=== PATIENT | male | born 1960 | race Caucasian/White ===

== ENCOUNTER 2016-12-26 18:49 | Emergency (ER) | payer OTHER ==
[~2016-12-26] VITALS: Ht 177.8 cm; Wt 60.8 kg
[2016-12-26 19:31] LABS: EOSINOPHIL (%) 0.2 % (0-5); HEMATOCRIT 42.5 % (36.0-46.0); IMMATURE GRANULOCYTE (%) 0.7 % (0.0-0.7); INSTRUMENT ABS NEUTROPHIL CT 2.9 K/uL; LYMPHOCYTE COUNT 0.9 K/uL (1.0-2.8); MCH 31.6 PG (29.0-34.0); MCHC 36.2 G/DL (30.0-36.0); MCV 87.3 FL (83-99); MEAN PLAT.VOLUME 11.4 uM^3 (9.5-12.4); MONOCYTE (%) 12.5 % (3-12); MONOCYTE COUNT 0.6 K/uL (0-0.8); NEUTROPHIL (%) 66.4 % (45-76); NEUTROPHIL COUNT 2.9 K/uL (1.8-6.4); PLATELET COUNT 89 K/uL (156-360); RBC DIS.WIDTH-CV 12.2 % (11.8-14.6); RBC DIS.WIDTH-SD 39.6 % (39-53); RED BLOOD COUNT 4.87 M/uL (3.80-5.20); WHITE BLOOD COUNT 4.4 K/uL (4.1-10.2)
[2016-12-26 19:43] LABS: CHLORIDE 85 mEq/L (99-109); POTASSIUM 3.1 mEq/L (3.7-5.4); SODIUM 131 mEq/L (136-147)
[2016-12-26 19:46] LABS: GLUCOSE 102 mg/dL (70-99)
[2016-12-26 19:47] LABS: ANION GAP 14 MEQ/L (2-14)
[2016-12-26 19:48] LABS: TOTAL BILIRUBIN 1.7 mg/dL (0.0-1.0)
[2016-12-26 19:49] LABS: ALKALINE PHOSPHATASE 56 IU/L (3-129); GFR ESTIMATE (CALCULATED) > 59 mL/min/
[2016-12-26 19:50] LABS: UREA NITROGEN (BUN) 6 mg/dL (9-23)
[2016-12-26] MEDS ORDERED: POTASSIUM-9999 MG PO (20:30)
[2016-12-26] MEDS ORDERED: K-DUR20 MEQ PO (20:37)
[2016-12-26 21:04] VITALS: BP 109/75
== END 2016-12-26 21:04 | disposition home or self-care (01) ==
LOC: EDBD 18:49 → EDSEX 18:49 → EME 18:49
PROVIDERS: Emergency Medicine
DX: G40.909 Epilepsy, unspecified, not intractable, without status epilepticus (principal); R41.3 Other amnesia; F17.200 Nicotine dependence, unspecified, uncomplicated
CPT/HCPCS: 80053; 85025; 99281; 99284